=== PATIENT | male | born 1975 | race Caucasian/White ===

== ENCOUNTER 2022-09-09 04:15 | Emergency (ER) | payer OTHER, SELFPAY ==
[2022-09-09] VITALS (24 sets, daily range): BP systolic 172–216; BP diastolic 111–131; PULSE 76–95; RESP 13–22; TEMP 37.4; O2SAT 96–100
--- NOTE | ~2022-09-09 | CT_ITS ---
EXAMINATION: CT brain wo con INDICATION: Hypertension, headache COMPARISON: None TECHNIQUE: Standard unenhanced head CT. The dose-length product (DLP) was 681.00 mGy-cm. The mA was a djusted according to patient size. Iterative reconstruction technique was employed. FINDINGS: There is no intracranial hemorrhage, acute infarction, or abnormal mass lesion. The ventric les are normal. There is no abnormal mass effect or midline shift. The bedoya-white matter differentiat ion is normal. The basal cisterns are patent. The orbits are normal. There is mild mucosal thickening of the paranasal sinuses. IMPRESSION: 1. No acute intracranial abnormality. Reviewed, dictated and finalized at location B. HT CALCULATOR
--- NOTE | 2022-09-09 04:29 | ECG_ITS ---
Measurements Intervals [place] Rate: 80 P: 25 OK: 149 QRS: 72 QRSD: 105 T: 74 QT: 396 QTc: 458 Interpretive Statements SINUS RHYTHM BORDERLINE ST-T WAVE ABNORMALITY- ANTEROLAT/HIGH LAT LEADS BASELINE WANDER- I, II, III, AVR, AVL, AVF, V1, V3 BORDERLINE ECG NO PREVIOUS ECG AVAILABLE FOR COMPARISON Electronically Signed On 09-09-2022 11:56:01 COMPUTER NETWORK SUPPORT SPECIALIST by Nicholas Higuera D.O.
[2022-09-09] MEDS: hydrALAZINE HCL 20 MG/ML VIAL 10 MG IV PUSH (04:36)
--- NOTE | 2022-09-09 04:39 | ED.GENADULT ---
HPI - General Adult General Chief complaint: Recheck/Abnormal Lab/Rx Stated complaint: HTN Time Seen by Provider: 09/09/22 04:23 History of Present Illness HPI narrative: 47-year-old male with history of hypertension presenting to the emergency department for evaluation of worsening blood pressure. Patient states that he has been on blood pressure medication for the last 4 months but over the last 2 days he has had increased blood pressures. Related Data Allergies Allergy/AdvReac Type Severity Reaction Status Date / Time No Known Allergies Allergy Verified 09/09/22 04:27 Course Course Emergency Course: Patient's head CT was negative. Patient's blood pressure is improving with treatment. Discussed the case with Dr. Sweet and he will see the patient as outpatient. He was comfortable with starting a second agent for the patient's blood pressure. Patient was updated on the results of the work-up and plan for follow-up. All questions and concerns were addressed. Vital Signs Vital signs: Vital Signs Temperature 99.3 F 09/09/22 04:24 Pulse Rate 82 09/09/22 04:24 Respiratory Rate 16 09/09/22 04:24 Blood Pressure 216/123 H 09/09/22 04:24 Pulse Oximetry 100 09/09/22 04:24 Oxygen Delivery Room Air 09/09/22 04:24 Temperature 99.3 F 09/09/22 04:24 Pulse Rate 85 09/09/22 06:16 Respiratory Rate 18 09/09/22 06:16 Blood Pressure 196/116 H 09/09/22 06:15 Pulse Oximetry 96 09/09/22 06:16 Oxygen Delivery Room Air 09/09/22 04:24 Medical Decision Making Vital Signs Vital Signs: Vital Signs Temperature 99.3 F 09/09/22 04:24 Pulse Rate 82 09/09/22 04:24 Respiratory Rate 16 09/09/22 04:24 Blood Pressure 216/123 H 09/09/22 04:24 Pulse Oximetry 100 09/09/22 04:24 Oxygen Delivery Room Air 09/09/22 04:24 Temperature 99.3 F 09/09/22 04:24 Pulse Rate 85 09/09/22 06:16 Respiratory Rate 18 09/09/22 06:16 Blood Pressure 196/116 H 09/09/22 06:15 Pulse Oximetry 96 09/09/22 06:16 Oxygen Delivery Room Air 09/09/22 04:24 Lab Data Lab results reviewed: Yes I reviewed the patient's lab results. Result diagrams: 09/09/22 04:40 09/09/22 04:40 Labs: Lab Results 09/09/22 09/09/22 Range/Units 04:40 04:40 WBC 7.6 (4.5-10.0) K/mm3 RBC 4.06 L (4.6-6.20) M/mm3 Hgb 13.9 L (14.0-18.0) g/dL Hct 38.9 L (42.0-52.0) % MCV 95.8 (80-100) fl MCH 34.2 H (26-34) pg MCHC 35.7 (32-36) g/dl RDW 12.4 (11.5-14.5) % Plt Count 246 (150-375) k/mm3 MPV 9.6 (7.4-10.4) fl Immature Gran % (Auto) 0.4 (0-0.5) % Neut % (Auto) 51.1 (45.5-73.1) % Lymph % (Auto) 39.3 (18.3-44.2) % [place] % (Auto) 7.4 (2.6-8.5) % Eos % (Auto) 1.3 (0-4.4) % Baso % (Auto) 0.5 (0.2-1.2) % Lymph # (Auto) 2.98 (0.9-3.2) K/mm3 [place] # (Auto) 0.6 (0.1-0.6) K/mm3 Eos # (Auto) 0.1 (0-0.3) K/mm3 Baso # (Auto) 0.0 (0.0-0.1) K/mm3 Abs Immat Gran (auto) 0.03 (0.00-0.031) K/mm3 Absolute Neuts (auto) 3.9 (1.3-6.7) K/mm3 Absolute Nucleated RBC 0.0 (0.0-0.012) K/mm3 Nucleated RBC % 0.0 (0.0-0.2) % Sodium 142 (137-145) mmol/L Potassium 3.2 L (3.4-5.0) mmol/L Chloride 100 (98-107) mmol/L Carbon Dioxide 25 (22-30) mmol/L Anion Gap 17 H (8-16) mmol/L BUN 15 (9-20) mg/dL Creatinine 1.00 (0.7-1.3) mg/dL Estim Creat Clear Calc 81 ml/min Estimated GFR > 60 (59 - ) Glucose 96 (65-110) mg/dL Calcium 9.1 (8.4-10.2) mg/dL Total Bilirubin 0.8 (0.2-1.3) mg/dL AST 66 H (17-59) U/L ALT 38 (6-50) U/L Alkaline Phosphatase 63 (38-126) U/L Total Protein 8.0 (6.3-8.2) g/dL Albumin 4.9 (3.5-5.1) g/dL Imaging Data Radiologist's impression: CT head impression: Normal. No focal or acute intracranial abnormality. Paranasal sinuses are clear. Discharge Plan Discharge Clinical Impression: HTN (hypertension) Patient Disposition: Home, [place]
[2022-09-09 05:23] LABS: Basophils Percent Auto 0.5 % (0.2-1.2); Eosinophils Absolute Auto 0.1 K/mm3 (0-0.3); Eosinophils Percent Auto 1.3 % (0-4.4); Hematocrit 38.9 % (42.0-52.0); Hemoglobin 13.9 g/dL (14.0-18.0); Immature Granulocyte Absolute 0.03 K/mm3 (0.00-0.031); Immature Granulocyte Percent A 0.4 % (0-0.5); Lymphocytes Absolute Auto 2.98 K/mm3 (0.9-3.2); Lymphocytes Percent Auto 39.3 % (18.3-44.2); Mean Corpuscular HGB Conc 35.7 g/dl (32-36); Mean Corpuscular Hemoglobin 34.2 pg (26-34); Mean Corpuscular Volume 95.8 fl (80-100); Mean Platelet Volume 9.6 fl (7.4-10.4); Monocytes Absolute Auto 0.6 K/mm3 (0.1-0.6); Monocytes Percent Auto 7.4 % (2.6-8.5); Neutrophils Absolute Auto 3.9 K/mm3 (1.3-6.7); Neutrophils Percent Auto 51.1 % (45.5-73.1); Platelet Count Result 246 k/mm3 (150-375); Red Blood Count 4.06 M/mm3 (4.6-6.20); Red Cell Distribution Width 12.4 % (11.5-14.5); White Blood Count 7.6 K/mm3 (4.5-10.0)
[2022-09-09] MEDS: NITROGLYCERIN OINTMENT 1 INCH DOSE TRANSDERM (05:27)
[2022-09-09 05:33] LABS: Alanine Aminotransferase 38 U/L (6-50); Albumin Level 4.9 g/dL (3.5-5.1); Alkaline Phosphatase 63 U/L (38-126); Anion Gap 17 mmol/L (8-16); Aspartate Amino Transferase 66 U/L (17-59); Bilirubin,Total 0.8 mg/dL (0.2-1.3); Blood Urea Nitrogen 15 mg/dL (9-20); Calcium 9.1 mg/dL (8.4-10.2); Carbon Dioxide 25 mmol/L (22-30); Chloride 100 mmol/L (98-107); Estimated CRCL calculation 81 ml/min; Estimated Glomerular Filt Rate > 60; Glucose 96 mg/dL (65-110); Potassium 3.2 mmol/L (3.4-5.0); Sodium 142 mmol/L (137-145)
[2022-09-09] MEDS: hydroCHLOROthiazide 25 MG TABLET PO (06:42)
== END 2022-09-09 07:26 | disposition home or self-care (01) ==
PROVIDERS: Emergency Provider Emergency Medicine
DX: I10 Essential (primary) hypertension (principal); R94.31 Abnormal electrocardiogram [ECG] [EKG]
CPT/HCPCS: 36415; 70450; 80053; 85025; 93005; 96374; 99284; A9270; J0360

== ENCOUNTER 2022-09-21 18:13 | Emergency (ER) | payer OTHER, SELFPAY ==
--- NOTE | ~2022-09-21 | XR_ITS ---
EXAMINATION: XR chest 2V Exam Date/Time: 09/21/2022 19:13 RUBY RAILS DEVELOPER HISTORY: TIGHTNESS IN CHEST ALL DAY, TAKING MEDICATION FOR HBP 4 MON. Comparison: None available. RESULT: Lines, tubes, and devices: None. Lungs and pleura: Clear. Cardiomediastinal silhouette: Unremarkable. Other: No acute osseous or upper abdominal finding. IMPRESSION: No acute cardiopulmonary process. Reviewed, dictated and finalized at location K. RAILS DEVELOPER
[2022-09-21 18:47] VITALS: BP 222/118; PULSE 60; RESP 20; TEMP 37; O2SAT 100
--- NOTE | 2022-09-21 18:47 | ECG_ITS ---
Measurements Intervals [place] Rate: 56 P: 46 DC: 146 QRS: 70 QRSD: 103 T: 85 QT: 424 QTc: 412 Interpretive Statements SINUS BRADYCARDIA CANNOT RULE OUT SEPTAL INFARCT, AGE INDETERMINATE NONSPECIFIC ST & T-WAVE ABNORMALITY- LAT/HIGH LAT LEADS ABNORMAL ECG COMPARED TO ECG 09/09/2022 04:35:33 [address]IA NOW PRESENT ST-T WAVE ABNORMALITY NOW PRESENT Electronically Signed On 09-22-2022 8:59:21 MANAGER THERAPY by Nicholas Higuera D.O.
[2022-09-21 19:15] LABS: Basophils Absolute Auto 0.1 K/mm3 (0.0-0.1); Basophils Percent Auto 0.7 % (0.2-1.2); Eosinophils Absolute Auto 0.1 K/mm3 (0-0.3); Eosinophils Percent Auto 0.9 % (0-4.4); Hematocrit 37.1 % (42.0-52.0); Hemoglobin 12.9 g/dL (14.0-18.0); Immature Granulocyte Absolute 0.03 K/mm3 (0.00-0.031); Immature Granulocyte Percent A 0.3 % (0-0.5); Lymphocytes Absolute Auto 2.87 K/mm3 (0.9-3.2); Lymphocytes Percent Auto 31.6 % (18.3-44.2); Mean Corpuscular HGB Conc 34.8 g/dl (32-36); Mean Corpuscular Hemoglobin 34.1 pg (26-34); Mean Corpuscular Volume 98.1 fl (80-100); Mean Platelet Volume 9.5 fl (7.4-10.4); Monocytes Absolute Auto 0.5 K/mm3 (0.1-0.6); Monocytes Percent Auto 5.4 % (2.6-8.5); Neutrophils Absolute Auto 5.5 K/mm3 (1.3-6.7); Neutrophils Percent Auto 61.1 % (45.5-73.1); Platelet Count Result 279 k/mm3 (150-375); Red Blood Count 3.78 M/mm3 (4.6-6.20); Red Cell Distribution Width 12.3 % (11.5-14.5); White Blood Count 9.1 K/mm3 (4.5-10.0)
[2022-09-21 19:29] LABS: Partial Thromboplastin Time 27.6 SECONDS (22.3-36.8); Prothrombin Time 12.6 Seconds (11.1-14.7)
[2022-09-21 19:30] LABS: Alanine Aminotransferase 41 U/L (6-50); Albumin Level 4.8 g/dL (3.5-5.1); Alkaline Phosphatase 62 U/L (38-126); Anion Gap 8 mmol/L (8-16); Aspartate Amino Transferase 42 U/L (17-59); Bilirubin,Total 0.6 mg/dL (0.2-1.3); Blood Urea Nitrogen 11 mg/dL (9-20); Calcium 9.4 mg/dL (8.4-10.2); Carbon Dioxide 25 mmol/L (22-30); Chloride 101 mmol/L (98-107); Estimated Glomerular Filt Rate > 60; Glucose 95 mg/dL (65-110); Lipase 69 U/L (23-300); Potassium 3.8 mmol/L (3.4-5.0); Sodium 134 mmol/L (137-145)
[2022-09-21 19:42] LABS: Troponin I < 0.012 ng/mL (0.000-0.034)
--- NOTE | 2022-09-21 20:03 | ED.GENADULT ---
HPI - General Adult General Chief complaint: Recheck/Abnormal Lab/Rx Stated complaint: High BP Time Seen by Provider: 09/21/22 19:06 History of Present Illness HPI narrative: This is a 47-year-old male with history of hypertension presenting ED with elevated blood pressure. Patient has been trending his blood pressure control for approximately 3 months. Earlier today at 5:00 a.m. he notes that he had blurry vision and some chest tightness while watching TV. The tightness was nonradiating, 5 in 10 intensity and constant. He has experienced this before although he does related to anxiety. There are no exacerbating alleviating factors. The chest pain resolved on its own after about an hour. The patient did not become diaphoretic, vomiting and there is no association with exertion. The patient has been taking his blood pressure repeatedly throughout the day and is notices continued to trend up. He is currently taking atenolol 50 mg and lisinopril 20mg QD. patient took his blood pressure medication this morning. Patient currently feels well and has no complaints. Related Data Allergies Allergy/AdvReac Type Severity Reaction Status Date / Time No Known Allergies Allergy Verified 09/09/22 04:27 Review of Systems Review of Systems: CONSTITUTIONAL: Denies night sweats. EYES: No eye pain ENT: Denies rhinorrhea CARDIOVASCULAR: Denies palpitations RESPIRATORY: Denies hemoptysis GASTROINTESTINAL: Denies hematemesis GENITOURINARY: Denies hematuria. SKIN: Denies rash MUSCULOSKELETAL: Denies myalgia. NEUROLOGIC: Denies weakness. PSYCHIATRIC: Denies delusions PMFSH Family History Family History Other Hypertension Social History Social History Social History: patient denies tobacco use. Uses alcohol occasionally, uses marijuana daily. Exam Narrative: APPEARANCE: No apparent distress. Head: atraumatic. EYES: EOMI, NOSE: Atraumatic NECK: Trachea midline RESPIRATORY: No increased rate of breathing , clear to auscultation in all corbin CARDIOVASCULAR: RRR, no peripheral edema ABDOMINAL: Non-distended, soft nontender MUSCULOSKELETAl: No obvious deformities NEURO: Alert. Cranial nerves 2-12 grossly intact. Sensation light touch, motor function cerebellar function intact for 4 extremities. Gait exam was normal. SKIN:: Warm, dry. Normal color PSYCHIATRIC: Normal affect Course Vital Signs Vital signs: Vital Signs Temperature 98.6 F 09/21/22 18:47 Pulse Rate 60 09/21/22 18:47 Respiratory Rate 20 09/21/22 18:47 Blood Pressure 222/118 H 09/21/22 18:47 Pulse Oximetry 100 09/21/22 18:47 Oxygen Delivery Room Air 09/21/22 18:47 Temperature 98.6 F 09/21/22 18:47 Pulse Rate 60 09/21/22 18:47 Respiratory Rate 20 09/21/22 18:47 Blood Pressure 222/118 H 09/21/22 18:47 Pulse Oximetry 100 09/21/22 18:47 Oxygen Delivery Room Air 09/21/22 18:47 Medical Decision Making MDM Narrative Medical decision making narrative: This is a 47-year-old male presenting ED with elevated blood pressure. Patient had episode of chest pain earlier today although he feels well now. Lab work was ordered per nursing protocol to evaluate for organ damage. EKG interpretation: Rhythm [sinus], Rate 56, [place] -[normal], [place] -[normal], QRS [narrow], QTC [normal], T waves - inversions in aVL, ST Segments - [Negative for concerning elevations] Final interpretations: sinus bradycardia with nonspecific T-wave abnormalities. These are new from his last visit in early August. Lab work including kidney function, troponinx2 were unchanged from his visit 2 weeks ago. Patient was monitored for several hours has been asymptomatic throughout. We will increase the patient's atenolol to 75 mg a day until he can follow up with primary care physician to have his hypertensive regimen altered. The patient
[2022-09-21 22:31] LABS: Troponin I < 0.012 ng/mL (0.000-0.034)
[2022-09-21 23:20] VITALS: BP 198/108; PULSE 69; O2SAT 99
== END 2022-09-21 23:25 | disposition home or self-care (01) ==
PROVIDERS: Emergency Medicine; Emergency Provider Emergency Medicine
DX: F41.9 Anxiety disorder, unspecified (principal); I10 Essential (primary) hypertension
CPT/HCPCS: 36415; 71046; 80053; 83690; 84484; 85025; 85610; 85730; 93005; 99284